=== PATIENT | female | born 1975 | race Caucasian/White ===

== ENCOUNTER 2017-10-02 17:02 | Emergency (ER) | payer MEDICAID | END 2017-10-02 18:06 | disposition home or self-care (01) | LOC: FTE 17:02 → E/R 18:06 | DX: N60.02 Solitary cyst of left breast (principal) | CPT/HCPCS: 93005; 99283-25 ==

== ENCOUNTER 2018-02-12 17:58 | Emergency (ER) | payer MEDICAID ==
[2018-02-12] MEDS ORDERED: KETOROLAC 60 MG INJ IM (18:43)
[2018-02-12] MEDS ORDERED: LACTATED RINGER'S 1,000 ML IV (18:44)
[2018-02-12] MEDS ORDERED: LORAZEPAM 1 MG TAB PO (19:00)
[2018-02-12 19:11] LABS: URINE BLOOD (Dip) POC 3+ (NEGATIVE); URINE GLUCOSE (Dip) POC Negative (NEGATIVE); URINE KETONES (Dip) POC Negative (NEGATIVE); URINE LEUKOCYTE EST (Dip) POC Negative (NEGATIVE); URINE NITRITE (Dip) POC Negative (NEGATIVE); URINE TOTAL PROTEIN POC Trace (NEGATIVE)
[2018-02-12] MEDS: SOD CHLORIDE 0.9% 1,000 ML IV (19:15)
[2018-02-12] MEDS: LORAZEPAM 2 MG INJ IV (19:16)
[2018-02-12] MEDS: KETOROLAC 30 MG INJ IV (19:16)
[2018-02-12] MEDS: ONDANSETRON 4 MG INJ IV (19:16)
[2018-02-12 19:33] LABS: ADD MAN DIFF? NO
[2018-02-12 19:35] LABS: BASOPHIL # 0.1 10^3/ul (0.0-0.1); BASOPHILS % 1.1 % (0.0-2.0); EOSINOPHILS # 0.2 10^3/ul (0.0-0.5); EOSINOPHILS % 2.6 % (0.0-7.0); HEMATOCRIT 36.8 % (37.0-47.0); HEMOGLOBIN 12.6 g/dl (12.0-16.0); LYMPHOCYTES % 31.2 % (15.0-51.0); MEAN CORPUSCULAR HEMOGLOBIN 27.5 pg (29.0-33.0); MEAN CORPUSCULAR HGB CONC 34.2 g/dl (32.0-37.0); MEAN CORPUSCULAR VOLUME 80.3 fl (82.0-101.0); MEAN PLATELET VOLUME 11.8 fl (7.4-10.4); MONOCYTE # 0.6 10^3/ul (0.3-0.9); NEUTROPHIL # 3.6 10^3/ul (1.6-7.5); NEUTROPHILS % 55.9 % (39.0-77.0); PLATELET COUNT 254 10^3/UL (140-415); RED BLOOD COUNT 4.58 10^6/ul (4.20-5.40)
[2018-02-12 19:35] LABS: WHITE BLOOD COUNT 6.5 10^3/ul (4.8-10.8)
[2018-02-12 19:44] LABS: ADD UMIC YES; UR ASCORBIC ACID NEGATIVE (NEGATIVE); UR BILIRUBIN (Dip) NEGATIVE (NEGATIVE); UR BLOOD (Dip) 3+ mg/dL (NEGATIVE); UR CLARITY CLEAR (CLEAR); UR COLOR YELLOW (YELLOW); UR GLUCOSE (Dip) NEGATIVE (NEGATIVE); UR KETONES (Dip) NEGATIVE (NEGATIVE); UR LEUKOCYTE ESTERASE (Dip) NEGATIVE Leu/ul (NEGATIVE); UR NITRITE (Dip) NEGATIVE (NEGATIVE); UR RBC > 182 /HPF (0-5); UR SPECIFIC GRAVITY (Dip) 1.013 (1.003-1.030); UR TOTAL PROTEIN (Dip) NEGATIVE (NEGATIVE); UR UROBILINOGEN (Dip) NEGATIVE (NEGATIVE); UR WBC 1 /HPF (0-5)
[2018-02-12 19:53] LABS: ALANINE AMINOTRANSFERASE 24 IU/L (13-69); ALBUMIN 4.3 g/dl (3.3-4.9); ALBUMIN/GLOBULIN RATIO 1.16; ALKALINE PHOSPHATASE 66 IU/L (42-121); ANION GAP 17 (8-16); ASPARTATE AMINO TRANSFERASE 20 IU/L (15-46); BILIRUBIN,INDIRECT 0.5 mg/dl (0-1.1); BILIRUBIN,TOTAL 0.5 mg/dl (0.2-1.3); BLOOD UREA NITROGEN 20 mg/dl (7-20); CALCIUM 8.9 mg/dl (8.4-10.2); CARBON DIOXIDE 26 mmol/L (21-31); CHLORIDE 104 mmol/L (97-110); CREATININE 0.89 mg/dl (0.44-1.00); GLUCOSE 95 mg/dl (70-220); LIPASE 81 U/L (23-300); POTASSIUM 3.5 mmol/L (3.5-5.1); SODIUM 143 mmol/L (135-144)
[2018-02-12 20:03] LABS: INR 0.94; PROTIME 12.7 Sec (11.9-14.9)
[2018-02-12 20:04] LABS: PARTIAL THROMBOPLASTIN TIME 31.6 Sec (25.0-35.0)
== END 2018-02-12 21:29 | disposition home or self-care (01) ==
LOC: FTE 17:58
DX: M54.5 Low back pain (principal)
CPT/HCPCS: 36415; 74176; 80053; 81001; 81003; 81025; 83690; 85025; 85610; 85730; 96374; 96375; 99285-25

== ENCOUNTER 2018-10-26 13:49 | Emergency (ER) | payer MEDICAID ==
[2018-10-26 15:29] LABS: URINE BLOOD (Dip) POC 2+ (NEGATIVE); URINE GLUCOSE (Dip) POC Negative (NEGATIVE); URINE KETONES (Dip) POC Negative (NEGATIVE); URINE LEUKOCYTE EST (Dip) POC Negative (NEGATIVE); URINE NITRITE (Dip) POC Negative (NEGATIVE); URINE TOTAL PROTEIN POC 1+ (NEGATIVE)
[2018-10-26] MEDS: ACETAMINOPHEN 500 MG TAB PO (15:39)
[2018-10-26] MEDS: IBUPROFEN 800 MG TAB PO (15:39)
== END 2018-10-26 16:32 | disposition home or self-care (01) ==
LOC: FTE 13:49
DX: J06.9 Acute upper respiratory infection, unspecified (principal)
CPT/HCPCS: 81003; 81025; 99282

== ENCOUNTER 2019-02-19 12:17 | Emergency (ER) | payer SELFPAY, MEDICAID ==
[2019-02-19] MEDS: ONDANSETRON 4 MG INJ IV (13:03)
[2019-02-19] MEDS: SOD CHLORIDE 0.9% 1,000 ML IV (13:03)
[2019-02-19] MEDS: KETOROLAC 15 MG INJ IV (13:03)
[2019-02-19] MEDS: morphine 4 MG/ML VIAL IV (13:03)
[2019-02-19 13:09] LABS: ADD MAN DIFF? NO
[2019-02-19 13:12] LABS: BASOPHIL # 0.1 10^3/ul (0.0-0.1); BASOPHILS % 1.2 % (0.0-2.0); EOSINOPHILS # 0.2 10^3/ul (0.0-0.5); EOSINOPHILS % 2.5 % (0.0-7.0); HEMATOCRIT 35.6 % (37.0-47.0); LYMPHOCYTES # 1.4 10^3/ul (0.8-2.9); LYMPHOCYTES % 23.2 % (15.0-51.0); MEAN CORPUSCULAR HEMOGLOBIN 27.1 pg (29.0-33.0); MEAN CORPUSCULAR HGB CONC 33.7 g/dl (32.0-37.0); MEAN CORPUSCULAR VOLUME 80.5 fl (82.0-101.0); MEAN PLATELET VOLUME 11.5 fl (7.4-10.4); MONOCYTE # 0.4 10^3/ul (0.3-0.9); NEUTROPHILS % 66.8 % (39.0-77.0); PLATELET COUNT 261 10^3/UL (140-415); RED BLOOD COUNT 4.42 10^6/ul (4.20-5.40)
[2019-02-19 13:51] LABS: ADD UMIC YES; UR ASCORBIC ACID NEGATIVE (NEGATIVE); UR BACTERIA FEW /HPF (NONE SEEN); UR BILIRUBIN (Dip) NEGATIVE (NEGATIVE); UR BLOOD (Dip) 2+ mg/dL (NEGATIVE); UR CLARITY SLIGHTLY CLOUDY (CLEAR); UR COLOR YELLOW (YELLOW); UR GLUCOSE (Dip) NEGATIVE (NEGATIVE); UR KETONES (Dip) NEGATIVE (NEGATIVE); UR LEUKOCYTE ESTERASE (Dip) NEGATIVE Leu/ul (NEGATIVE); UR NITRITE (Dip) NEGATIVE (NEGATIVE); UR RBC 1 /HPF (0-5); UR SPECIFIC GRAVITY (Dip) 1.013 (1.003-1.030); UR SQUAMOUS EPITHELIAL CELL FEW /HPF (FEW); UR TOTAL PROTEIN (Dip) 1+ mg/dl (NEGATIVE); UR UROBILINOGEN (Dip) 1+ mg/dL (NEGATIVE); UR WBC 1 /HPF (0-5)
[2019-02-19 13:56] LABS: ALANINE AMINOTRANSFERASE 42 IU/L (13-69); ALBUMIN 4.4 g/dl (3.3-4.9); ALBUMIN/GLOBULIN RATIO 1.22; ALKALINE PHOSPHATASE 89 IU/L (42-121); ANION GAP 9 (5-13); ASPARTATE AMINO TRANSFERASE 34 IU/L (15-46); BLOOD UREA NITROGEN 13 mg/dl (7-20); CALCIUM 9.2 mg/dl (8.4-10.2); CARBON DIOXIDE 26 mmol/L (21-31); CHLORIDE 106 mmol/L (97-110); CREATININE 0.78 mg/dl (0.44-1.00); Estimated GFR > 60 mL/min (>60); GLUCOSE 151 mg/dl (70-220); LIPASE 50 U/L (23-300); SODIUM 141 mmol/L (135-144)
== END 2019-02-19 15:51 | disposition home or self-care (01) ==
LOC: E/R 12:17
DX: R10.9 Unspecified abdominal pain (principal)
CPT/HCPCS: 36415; 74176; 80053; 81001; 81025; 83690; 85025; 87086; 96374; 96375; 99285-25

== ENCOUNTER 2019-02-20 08:29 | Emergency (ER) | payer SELFPAY ==
[2019-02-20] MEDS: KETOROLAC 30 MG INJ IV (09:42)
[2019-02-20] MEDS: ONDANSETRON 4 MG INJ IV (09:42)
[2019-02-20] MEDS: morphine 4 MG/ML VIAL IV (09:42)
[2019-02-20] MEDS: SOD CHLORIDE 0.9% 1,000 ML IV (09:43)
[2019-02-20 10:11] LABS: ADD MAN DIFF? NO
[2019-02-20 10:14] LABS: WHITE BLOOD COUNT 4.5 10^3/ul (4.8-10.8)
[2019-02-20 10:14] LABS: BASOPHIL # 0.1 10^3/ul (0.0-0.1); BASOPHILS % 1.8 % (0.0-2.0); EOSINOPHILS # 0.1 10^3/ul (0.0-0.5); EOSINOPHILS % 2.7 % (0.0-7.0); HEMATOCRIT 37.1 % (37.0-47.0); HEMOGLOBIN 12.2 g/dl (12.0-16.0); LYMPHOCYTES # 1.5 10^3/ul (0.8-2.9); LYMPHOCYTES % 32.5 % (15.0-51.0); MEAN CORPUSCULAR HEMOGLOBIN 26.7 pg (29.0-33.0); MEAN CORPUSCULAR HGB CONC 32.9 g/dl (32.0-37.0); MEAN CORPUSCULAR VOLUME 81.2 fl (82.0-101.0); MEAN PLATELET VOLUME 11.7 fl (7.4-10.4); MONOCYTE # 0.4 10^3/ul (0.3-0.9); NEUTROPHIL # 2.5 10^3/ul (1.6-7.5); NEUTROPHILS % 54.8 % (39.0-77.0); PLATELET COUNT 269 10^3/UL (140-415); RED BLOOD COUNT 4.57 10^6/ul (4.20-5.40); RED CELL DISTRIBUTION WIDTH 13.1 % (11.5-14.5)
[2019-02-20 10:17] LABS: ADD UMIC YES; UR ASCORBIC ACID NEGATIVE (NEGATIVE); UR BILIRUBIN (Dip) NEGATIVE (NEGATIVE); UR BLOOD (Dip) 1+ mg/dL (NEGATIVE); UR CLARITY CLEAR (CLEAR); UR COLOR STRAW (YELLOW); UR GLUCOSE (Dip) NEGATIVE (NEGATIVE); UR KETONES (Dip) NEGATIVE (NEGATIVE); UR LEUKOCYTE ESTERASE (Dip) NEGATIVE Leu/ul (NEGATIVE); UR NITRITE (Dip) NEGATIVE (NEGATIVE); UR RBC 0 /HPF (0-5); UR TOTAL PROTEIN (Dip) NEGATIVE (NEGATIVE); UR UROBILINOGEN (Dip) NEGATIVE (NEGATIVE); UR WBC 0 /HPF (0-5)
[2019-02-20 10:43] LABS: ALANINE AMINOTRANSFERASE 47 IU/L (13-69); ALBUMIN 4.1 g/dl (3.3-4.9); ALBUMIN/GLOBULIN RATIO 1.24; ALKALINE PHOSPHATASE 91 IU/L (42-121); ANION GAP 6 (5-13); ASPARTATE AMINO TRANSFERASE 44 IU/L (15-46); BILIRUBIN,INDIRECT 0.6 mg/dl (0-1.1); BILIRUBIN,TOTAL 0.6 mg/dl (0.2-1.3); BLOOD UREA NITROGEN 14 mg/dl (7-20); CALCIUM 9.3 mg/dl (8.4-10.2); CARBON DIOXIDE 26 mmol/L (21-31); CHLORIDE 110 mmol/L (97-110); CREATININE 0.51 mg/dl (0.44-1.00); Estimated GFR > 60 mL/min (>60); GLUCOSE 103 mg/dl (70-220); LIPASE 72 U/L (23-300); POTASSIUM 4.6 mmol/L (3.5-5.1); SODIUM 142 mmol/L (135-144); TOTAL PROTEIN 7.4 g/dl (6.1-8.1)
[2019-02-20] MEDS: SOD CHLORIDE 0.9% 100 ML (11:07)
[2019-02-20] MEDS: IOHEXOL 300MG/ML 150 ML BTL (11:07)
== END 2019-02-20 12:30 | disposition home or self-care (01) ==
LOC: FTE 08:29
DX: R10.13 Epigastric pain (principal)
CPT/HCPCS: 36415; 74177; 76705; 80053; 81001; 81025; 83690; 85025; 96361; 96374; 96375; 99285-25

== ENCOUNTER 2019-02-20 20:37 | Inpatient (IN) | payer MEDICAID ==
[2019-02-20] MEDS: SOD CHLORIDE 0.9% 1,000 ML IV ×2 (21:17→23:50)
[2019-02-20] MEDS: ONDANSETRON 4 MG INJ IV (21:26)
[2019-02-20] MEDS: morphine 4 MG/ML VIAL IV (21:26)
[2019-02-20 21:28] LABS: ADD MAN DIFF? NO
[2019-02-20 21:31] LABS: BASOPHIL # 0.1 10^3/ul (0.0-0.1); BASOPHILS % 1.2 % (0.0-2.0); EOSINOPHILS # 0.3 10^3/ul (0.0-0.5); EOSINOPHILS % 5.2 % (0.0-7.0); HEMATOCRIT 31.5 % (37.0-47.0); HEMOGLOBIN 10.4 g/dl (12.0-16.0); LYMPHOCYTES # 1.9 10^3/ul (0.8-2.9); LYMPHOCYTES % 36.6 % (15.0-51.0); MEAN CORPUSCULAR HEMOGLOBIN 26.9 pg (29.0-33.0); MEAN CORPUSCULAR VOLUME 81.4 fl (82.0-101.0); MEAN PLATELET VOLUME 11.4 fl (7.4-10.4); MONOCYTE # 0.4 10^3/ul (0.3-0.9); MONOCYTES % 8.1 % (0.0-11.0); NEUTROPHIL # 2.5 10^3/ul (1.6-7.5); NEUTROPHILS % 48.7 % (39.0-77.0); PLATELET COUNT 232 10^3/UL (140-415); RED BLOOD COUNT 3.87 10^6/ul (4.20-5.40); RED CELL DISTRIBUTION WIDTH 13.1 % (11.5-14.5)
[2019-02-20 21:31] LABS: WHITE BLOOD COUNT 5.2 10^3/ul (4.8-10.8)
[2019-02-20 21:55] LABS: ALANINE AMINOTRANSFERASE 40 IU/L (13-69); ALBUMIN 3.7 g/dl (3.3-4.9); ALBUMIN/GLOBULIN RATIO 1.19; ALKALINE PHOSPHATASE 77 IU/L (42-121); ANION GAP 10 (5-13); ASPARTATE AMINO TRANSFERASE 37 IU/L (15-46); BILIRUBIN,INDIRECT 0.5 mg/dl (0-1.1); BILIRUBIN,TOTAL 0.5 mg/dl (0.2-1.3); BLOOD UREA NITROGEN 12 mg/dl (7-20); CALCIUM 8.5 mg/dl (8.4-10.2); CARBON DIOXIDE 23 mmol/L (21-31); CHLORIDE 107 mmol/L (97-110); CREATININE 0.55 mg/dl (0.44-1.00); Estimated GFR > 60 mL/min (>60); GLUCOSE 150 mg/dl (70-220); LIPASE 59 U/L (23-300); POTASSIUM 3.6 mmol/L (3.5-5.1); SODIUM 140 mmol/L (135-144); TOTAL PROTEIN 6.8 g/dl (6.1-8.1)
[2019-02-20] MEDS ORDERED: NACL 0.9% 3 ML SYG IV (23:30)
[2019-02-20] MEDS: LIDOCAINE/MYLANTA 40 ML BTL PO (23:49)
[2019-02-20] MEDS: DOCUSATE SODIUM 100 MG CAP PO (23:49)
[2019-02-21] MEDS: SOD CHLORIDE 0.9% 1,000 ML IV ×2 (05:23→22:46)
[2019-02-21] MEDS: ACETAMINOPHEN 325 MG TAB PO (05:23)
[2019-02-21 07:07] LABS: ADD MAN DIFF? NO
[2019-02-21 07:09] LABS: BASOPHIL # 0.1 10^3/ul (0.0-0.1); BASOPHILS % 1.1 % (0.0-2.0); EOSINOPHILS # 0.3 10^3/ul (0.0-0.5); EOSINOPHILS % 5.5 % (0.0-7.0); HEMATOCRIT 30.1 % (37.0-47.0); HEMOGLOBIN 10.2 g/dl (12.0-16.0); LYMPHOCYTES # 1.7 10^3/ul (0.8-2.9); LYMPHOCYTES % 37.1 % (15.0-51.0); MEAN CORPUSCULAR HEMOGLOBIN 27.6 pg (29.0-33.0); MEAN CORPUSCULAR HGB CONC 33.9 g/dl (32.0-37.0); MEAN CORPUSCULAR VOLUME 81.6 fl (82.0-101.0); MEAN PLATELET VOLUME 11.5 fl (7.4-10.4); MONOCYTE # 0.3 10^3/ul (0.3-0.9); MONOCYTES % 7.5 % (0.0-11.0); NEUTROPHIL # 2.2 10^3/ul (1.6-7.5); NEUTROPHILS % 48.4 % (39.0-77.0); PLATELET COUNT 218 10^3/UL (140-415); RED BLOOD COUNT 3.69 10^6/ul (4.20-5.40); RED CELL DISTRIBUTION WIDTH 13.2 % (11.5-14.5)
[2019-02-21 07:09] LABS: WHITE BLOOD COUNT 4.6 10^3/ul (4.8-10.8)
[2019-02-21 07:29] LABS: ALANINE AMINOTRANSFERASE 40 IU/L (13-69); ALBUMIN 3.3 g/dl (3.3-4.9); ALBUMIN/GLOBULIN RATIO 1.22; ALKALINE PHOSPHATASE 64 IU/L (42-121); ANION GAP 4 (5-13); ASPARTATE AMINO TRANSFERASE 31 IU/L (15-46); BILIRUBIN,INDIRECT 0.5 mg/dl (0-1.1); BILIRUBIN,TOTAL 0.5 mg/dl (0.2-1.3); BLOOD UREA NITROGEN 8 mg/dl (7-20); CARBON DIOXIDE 26 mmol/L (21-31); CHLORIDE 109 mmol/L (97-110); CREATININE 0.52 mg/dl (0.44-1.00); Estimated GFR > 60 mL/min (>60); GLUCOSE 98 mg/dl (70-220); POTASSIUM 4.4 mmol/L (3.5-5.1); SODIUM 139 mmol/L (135-144)
[2019-02-21] MEDS: morphine 2 MG INJ IV ×3 (07:45→22:47)
[2019-02-21 07:46] LABS: T3 UPTAKE 35.8 % (23.5-40.5); T4 (THYROXINE) 6.7 ug/dl (5.5-11.0)
[2019-02-21 07:49] LABS: HEMOGLOBIN A1C 5.6 % (0-5.9)
[2019-02-21] MEDS: ONDANSETRON 4 MG INJ IV (07:51)
[2019-02-21] MEDS ORDERED: BISACODYL (EC) 5 MG TAB PO (09:00)
[2019-02-21] MEDS: BISACODYL (EC) 5 MG TAB PO (12:52)
[2019-02-21] MEDS ORDERED: traMADol 50 MG TAB PO (15:30)
[2019-02-21] MEDS: MAGNESIUM CITRATE 300 ML BTL PO (17:31)
[2019-02-21] MEDS: POLYETHYLENE GLYCOL 3350 119 GM POWDER PO (17:33)
[2019-02-21] MEDS: PANTOPRAZOLE 40 MG INJ IV (17:39)
[2019-02-21 20:44] LABS: OCCULT BLOOD STOOL NEGATIVE (NEGATIVE)
[2019-02-22] MEDS: PANTOPRAZOLE 40 MG INJ IV ×2 (05:57→18:09)
[2019-02-22] MEDS: POLYETHYLENE GLYCOL 3350 119 GM POWDER PO (05:57)
[2019-02-22] MEDS: BISACODYL (EC) 5 MG TAB PO (07:58)
[2019-02-22] MEDS: morphine 2 MG INJ IV (07:58)
[2019-02-22] MEDS: ONDANSETRON 4 MG INJ IV (09:03)
[2019-02-22] MEDS: SOD CHLORIDE 0.9% 1,000 ML IV (11:17)
[2019-02-22] MEDS: AL HYDROX/MG HYDROX/SIMETH 30 ML CUP PO (14:04)
[2019-02-22] MEDS: PROPOFOL 60 ML (18:09)
[2019-02-22] MEDS: LIDOCAINE 2% (SDV) 5 ML INJ (18:09)
[2019-02-23] MEDS: PANTOPRAZOLE 40 MG INJ IV (05:29)
[2019-02-23] MEDS: SOD CHLORIDE 0.9% 1,000 ML IV (05:29)
[2019-02-23 07:17] LABS: WHITE BLOOD COUNT 5.1 10^3/ul (4.8-10.8)
[2019-02-23 07:17] LABS: ADD MAN DIFF? NO; BASOPHIL # 0.1 10^3/ul (0.0-0.1); EOSINOPHILS # 0.2 10^3/ul (0.0-0.5); HEMATOCRIT 33.6 % (37.0-47.0); HEMOGLOBIN 11.3 g/dl (12.0-16.0); LYMPHOCYTES # 1.3 10^3/ul (0.8-2.9); LYMPHOCYTES % 25.1 % (15.0-51.0); MEAN CORPUSCULAR HEMOGLOBIN 27.1 pg (29.0-33.0); MEAN CORPUSCULAR HGB CONC 33.6 g/dl (32.0-37.0); MEAN CORPUSCULAR VOLUME 80.6 fl (82.0-101.0); MONOCYTE # 0.3 10^3/ul (0.3-0.9); MONOCYTES % 6.7 % (0.0-11.0); NEUTROPHIL # 3.2 10^3/ul (1.6-7.5); PLATELET COUNT 262 10^3/UL (140-415); RED BLOOD COUNT 4.17 10^6/ul (4.20-5.40); RED CELL DISTRIBUTION WIDTH 12.9 % (11.5-14.5)
[2019-02-23 07:48] LABS: IRON 80 ug/dl (35-150)
[2019-02-23 07:57] LABS: % IRON SATURATION 23 % SAT (22-52); TOTAL IRON BINDING CAPACITY 355 ug/dl (241-421)
[2019-02-23 08:22] LABS: FERRITIN 34.3 ng/ml (6.2-137.0)
[2019-02-23] MEDS: morphine 2 MG INJ IV (09:16)
[2019-02-23] MEDS: SUCRALFATE (100 MG/ML) 10ML CUP PO (12:44)
== END 2019-02-23 16:05 | disposition home or self-care (01) | DRG 392 ==
LOC: PP2 23:19 → E/R 20:37
PROVIDERS: Family Medicine
PROC: 0DB68ZX Excision of Stomach, Via Natural or Artificial Opening Endoscopic, Diagnostic (ICD-10-PCS; principal; 2019-02-22 15:20)
PROC: 0DJD8ZZ Inspection of Lower Intestinal Tract, Via Natural or Artificial Opening Endoscopic (ICD-10-PCS; 2019-02-22 15:20)
DX: K29.70 Gastritis, unspecified, without bleeding (principal); E66.9 Obesity, unspecified; Z68.30 Body mass index [BMI] 30.0-30.9, adult; D64.9 Anemia, unspecified; K20.9 Esophagitis, unspecified; K29.80 Duodenitis without bleeding; E03.9 Hypothyroidism, unspecified; D50.9 Iron deficiency anemia, unspecified; E78.5 Hyperlipidemia, unspecified; K64.8 Other hemorrhoids
CPT/HCPCS: 36415; 74177; 76705; 80053; 81001; 81025; 82270; 82728; 83036; 83540; 83690; 83735; 84436; 84443; 84479; 84703; 85025; 87075; 88305; 88312; 96361; 96374; 96375; 99285-25

== ENCOUNTER 2019-03-10 18:22 | Emergency (ER) | payer MEDICAID ==
[2019-03-10 20:14] LABS: ADD MAN DIFF? NO
[2019-03-10] MEDS: ONDANSETRON 4 MG INJ IV (20:17)
[2019-03-10] MEDS: ASPIRIN 325 MG TAB PO (20:17)
[2019-03-10] MEDS: morphine 4 MG/ML VIAL IV (20:17)
[2019-03-10] MEDS: SOD CHLORIDE 0.9% 1,000 ML IV (20:17)
[2019-03-10 20:19] LABS: WHITE BLOOD COUNT 8.1 10^3/ul (4.8-10.8)
[2019-03-10 20:19] LABS: BASOPHIL # 0.1 10^3/ul (0.0-0.1); EOSINOPHILS # 0.2 10^3/ul (0.0-0.5); EOSINOPHILS % 1.9 % (0.0-7.0); HEMATOCRIT 35.1 % (37.0-47.0); HEMOGLOBIN 11.9 g/dl (12.0-16.0); LYMPHOCYTES # 2.5 10^3/ul (0.8-2.9); LYMPHOCYTES % 30.4 % (15.0-51.0); MEAN CORPUSCULAR HEMOGLOBIN 27.4 pg (29.0-33.0); MEAN CORPUSCULAR HGB CONC 33.9 g/dl (32.0-37.0); MEAN CORPUSCULAR VOLUME 80.7 fl (82.0-101.0); MEAN PLATELET VOLUME 11.3 fl (7.4-10.4); MONOCYTE # 0.7 10^3/ul (0.3-0.9); MONOCYTES % 8.2 % (0.0-11.0); NEUTROPHIL # 4.7 10^3/ul (1.6-7.5); NEUTROPHILS % 58.3 % (39.0-77.0); PLATELET COUNT 306 10^3/UL (140-415); RED BLOOD COUNT 4.35 10^6/ul (4.20-5.40); RED CELL DISTRIBUTION WIDTH 13.2 % (11.5-14.5)
[2019-03-10 20:24] LABS: ADD UMIC NO; UR ASCORBIC ACID NEGATIVE (NEGATIVE); UR BACTERIA FEW /HPF (NONE SEEN); UR BILIRUBIN (Dip) NEGATIVE (NEGATIVE); UR BLOOD (Dip) NEGATIVE (NEGATIVE); UR CLARITY SLIGHTLY CLOUDY (CLEAR); UR COLOR YELLOW (YELLOW); UR GLUCOSE (Dip) NEGATIVE (NEGATIVE); UR KETONES (Dip) NEGATIVE (NEGATIVE); UR LEUKOCYTE ESTERASE (Dip) NEGATIVE Leu/ul (NEGATIVE); UR NITRITE (Dip) NEGATIVE (NEGATIVE); UR RBC 1 /HPF (0-5); UR SPECIFIC GRAVITY (Dip) 1.013 (1.003-1.030); UR SQUAMOUS EPITHELIAL CELL FEW /HPF (FEW); UR TOTAL PROTEIN (Dip) NEGATIVE (NEGATIVE); UR UROBILINOGEN (Dip) NEGATIVE (NEGATIVE); UR WBC 2 /HPF (0-5)
[2019-03-10 20:36] LABS: ALANINE AMINOTRANSFERASE 19 IU/L (13-69); ALBUMIN 4.6 g/dl (3.3-4.9); ALBUMIN/GLOBULIN RATIO 1.17; ALKALINE PHOSPHATASE 67 IU/L (42-121); ANION GAP 9 (5-13); ASPARTATE AMINO TRANSFERASE 35 IU/L (15-46); BILIRUBIN,INDIRECT 0.7 mg/dl (0-1.1); BILIRUBIN,TOTAL 0.7 mg/dl (0.2-1.3); BLOOD UREA NITROGEN 15 mg/dl (7-20); CALCIUM 9.6 mg/dl (8.4-10.2); CARBON DIOXIDE 25 mmol/L (21-31); CHLORIDE 107 mmol/L (97-110); CREATININE 0.75 mg/dl (0.44-1.00); Estimated GFR > 60 mL/min (>60); GLUCOSE 91 mg/dl (70-220); POTASSIUM 4.1 mmol/L (3.5-5.1); SODIUM 141 mmol/L (135-144); TOTAL PROTEIN 8.5 g/dl (6.1-8.1)
[2019-03-10 20:40] LABS: INR 0.96; PROTIME 12.9 Sec (11.9-14.9)
[2019-03-10 20:41] LABS: PARTIAL THROMBOPLASTIN TIME 32.6 Sec (23.0-35.0)
[2019-03-10 20:43] LABS: D-DIMER 1157.14 ng/ml (<460)
[2019-03-10 20:47] LABS: TROPONIN-I < 0.012 ng/ml (0.000-0.120)
[2019-03-10] MEDS: IOHEXOL 100 ML (22:07)
[2019-03-10] MEDS: SOD CHLORIDE 0.9% 100 ML (22:07)
[2019-03-10 22:53] LABS: TROPONIN-I < 0.012 ng/ml (0.000-0.120)
== END 2019-03-10 23:38 | disposition home or self-care (01) ==
LOC: FTE 18:22
DX: R06.02 Shortness of breath (principal)
CPT/HCPCS: 36415; 71045; 71275; 76705; 80053; 81001; 81003; 81025; 84484; 85025; 85378; 85610; 85730; 93005; 96374; 96375; 99285-25